=== PATIENT | male | born 1970 | race Two or more races ===

== ENCOUNTER 2021-07-21 09:03 | Emergency (ER) | payer SELFPAY ==
[~2021-07-21] VITALS: Ht 170.2 cm; Wt 75.0 kg
[2021-07-21] MEDS ORDERED: ONDANSETRON PF 4 MG/2 ML VIAL. IVP ONE (09:30)
[2021-07-21] MEDS ORDERED: LIDO:MAALOX 1:1 20 ML SINGLE DOSE. PO ONE (09:30)
[2021-07-21] MEDS ORDERED: IV NORMAL SALINE 1,000ML 1,000 ML IV ONE (09:30)
[2021-07-21] MEDS ORDERED: IOHEXOL 300 MG/ML 75 ML VIAL. IV ONE (09:45)
--- NOTE | 2021-07-21 09:59 | PHYS DOC ---
Past History Additional Past Medical Histor: told yesterday he has inflammation of intestines (ELISABETH TORRES APRN) Past Surgical History: Other Additional Past Surgical Histo: back surgery for herinated disc (ELISABETH TORRES APRN) Alcohol Use: None Additional Alcohol Information: "quit 2 years ago" (ELISABETH TORRES APRN) Adult General Chief Complaint Chief Complaint: ABDOMINAL PAIN HPI HPI Patient is a 51-year-old male presents to the emergency department chief complaint of upper quadrant abdominal pain for the past several months. Patient reports 3 days ago he had a sudden increase of pain without radiation, seek medical care at a clinic located on [facility] in [facility]. Patient does not recall the name of the physician he seen. Patient reports the doctor he is seeing thought it might be an inflammation of his bowels started him on a medication, patient does not know the name of the medication he was given however took 1 dose this morning without relief of pain. Patient rates his current pain at a 10 out of 10. Patient reports his pain over the past several months has been an intermittent 1-2 out of 10. Patient reports intermittent nausea, intermittent loose stools, denies seeing blood in his stool. Denies chest pain or shortness of breath. Denies recent fever or chills. Denies allergies to medications, denies taking other prescription medications or trying [id number] pain relief medications for his abdominal discomfort. Patient reports a surgical history of herniated disc repair in his low back 6 years ago. Denies cigarette smoking, denies illicit drug use, reports he was a heavy drinker for many years however has not drank alcohol in 2 years. Patient denies other physical complaints or physical concerns. (ELISABETH TORRES APRN) Review of Systems Review of Systems 14 body systems of review of systems have been reviewed. See HPI for pertinent positives and negative responses, otherwise all other systems are negative, no npertinent or noncontributory. Constitutional: Negative except as outlined in HPI above. Skin: Negative except as outlined in HPI above. Eyes: Negative except as outlined in HPI above. HENT: Negative except as outlined in HPI above. Respiratory: Negative except as outlined in HPI above. Cardiovascular: Negative except as outlined in HPI above. GI: Negative except as outlined in HPI above. : Negative except as outlined in HPI above. Musculoskeletal: Negative except as outlined in HPI above. Integument: Negative except as outlined in HPI above. Neurologic: Negative except as outlined in HPI above. Endocrine: Negative except as outlined in HPI above. Lymphatic: Negative except as outlined in HPI above. Psychiatric: Negative except as outlined in HPI above. (ELISABETH TORRES APRN) Current Medications Current Medications Current Medications Medications (Trade) Dose Ordered Sig/Luis M Start Time Stop Time Status Last Admin Dose Admin Iohexol (Omnipaque 300 Mg/ml) 75 ml 1X ONCE 07/21/21 09:45 07/21/21 09:46 Multi-Ingredient Mouthwash/Gargle (Gi Cocktail) 20 ml 1X ONCE 07/21/21 09:30 07/21/21 09:37 DC Ondansetron HCl (Zofran) 4 mg 1X ONCE 07/21/21 09:30 07/21/21 09:37 DC Sodium Chloride 1,000 ml @ 1,000 mls/hr 1X ONCE 07/21/21 09:30 07/21/21 10:29 (ELISABETH TORRES APRN) Allergies Allergies Allergies Coded Allergies Type Severity Reaction Last Updated Verified No Known Drug Allergies 07/21/21 No (ELISABETH TORRES APRN) Physical Exam Physical Exam Constitutional: Well developed, well nourished, no acute distress, non-toxic appearance. 51-year-old male in no apparent distress. Patient's reported pain level of 10 out of 10 exceeds patient's physical appearance and physical examination. HENT: Normocephalic, atraumatic. Eyes: Conjunctiva normal, no discharge. Neck: Normal range of motion, no stridor. Cardiovascular: No cyanosis appreciated, distal cap refill less than 2 seconds. Lungs & Thorax: Patient is in no respiratory distress, no audible adventitious lung sounds appreciated. Abdomen: No masses appreciated, bowel sounds normal all 4 quadrants, pain to palpation left upper quadrant without guarding, negative Cruz sign, negative McBurney's point tenderness, negative rebound tenderness. Skin: Warm, dry, no erythema, no rash. Back: No tenderness, no deformities. Negative left-sided or right-sided CVA TTP. Extremities: No tenderness, no cyanosis, no clubbing, ROM intact, no edema. Neurologic: Alert and oriented X 3, normal motor function, normal sensory function, no focal deficits noted. Psychologic: Affect normal, judgement normal, mood normal. (MELISSAELISABETH Nolan APRN) Current Patient Data Vital Signs Vital Signs Date Time Temp Pulse Resp B/P (MAP) Pulse Ox O2 Delivery O2 Flow Rate FiO2 07/21/21 09:17 97.3 93 15 143/68 (93) 98 Room Air (ELISABETH TORRES APRN) EKG EKG [] (ELISABETH TORRES APRN) Radiology/Procedures Radiology/Procedures PROCEDURE: CT ABD PELV W/ IV CONTRST ONLY Exam: CT abdomen/pelvis with intravenous contrast Indication: Left upper quadrant pain Comparison: None Technique: Helical CT imaging performed of the abdomen and pelvis after the intravenous administration of contrast. Sagittal and coronal reformats were obtained. One or more of the following individualized dose reduction techniques were utilized for this examination: 1. Automated exposure control 2. Adjustment of the mA and/or kV according to patient size 3. Use of iterative reconstruction technique. Findings: Lower chest: Lung bases are clear. Heart is normal in size. Liver: Liver is normal in size and diffusely low in attenuation. Gallbladder/Biliary Tree: Normal. Pancreas: Normal Spleen: Normal Adrenal Glands: Normal. Kidneys/Ureters/Bladder: Kidneys are normal in size and enhance symmetrically. No hydronephrosis. The ureters are normal. There is circumferential bladder wall thickening, which may be partially due to underdistention. Reproductive Organs: Prostate gland is normal. Stomach, small bowel, and colon: The stomach is normal. Loops of bowel in the le ft upper quadrant are mildly dilated measuring up to 3.6 cm. there is gradual transition to decompressed small bowel in the left mid abdomen without discrete transition point. There is some areas of possible wall thickening in the dilated small bowel. No pneumatosis. The rest the small bowel is normal in caliber. There is fecal material seen in distal small bowel. Appendix is normal. The colon is normal in caliber without wall thickening. Vasculature: Abdominal aorta is normal in caliber. Minimal scattered aortoiliac calcified atherosclerosis. Lymph Nodes: There is no lymphadenopathy. Peritoneum and retroperitoneum: No free fluid or free air. Bones: No acute osseous abnormality. Mild degenerative disc disease at L5-S1. IMPRESSION: 1. Dilated loops of small bowel in the left hemiabdomen without discrete transition point. Findings could reflect low-grade or partial small bowel obstruction, or ileus. 2. Hepatic steatosis. Electronically signed by: Niecy Herzog MD (07/21/2021 10:15 AM) [id number] (ELISABETH TORRES APRN) Heart Score C/O Chest Pain: No Risk Factors: Risk Factors: DM, Current or recent (<one month) smoker, HTN, HLP, family history of CAD, obesity. Risk Scores: Risk Factors: DM, Current or recent (<one month) smoker, HTN, HLP, family history of CAD, obesity. (ELISABETH TORRES APRN) Course & Med Decision Making Course & Med Decision Making Pertinent Labs and Imaging studies reviewed. (See chart for details) 51-year-old male, vital signs reviewed, presents emergency department concerning severe left upper quadrant pain for the past 3 days. Physical examination consistent with dyspepsia, there is a moderate suspicion of pancreatitis versus gastroenteritis, patient's heart rate is 120, does have a history of alcoholism, will order CBC, CMP, lipase, CT abdomen pelvis with IV contrast. Will give 1 L normal saline, 4 mg Zofran IV, GI cocktail. CT abdomen pelvis with IV contrast concerning for small bowel obstruction with ileus, patient's white blood cell count 19,800, patient started on intravenous Zosyn per pharmacy dosing, discussed with patient recommendation for admission to hospital, patient is amenable to this planning. Called and discussed patient case and ED work-up with inpatient management physician Dr. Butler who gave concerns patient may need surgical intervention, recommended transfer to [facility] Discussed transfer and admis rachele to [facility] patient is amenable to this planning. Called and discussed patient case and ED work-up with inpatient management physician Dr. Constantino at [facility] who recommended reviewed case with [facility] surgeon general surgery Dr. Patel, Dr. Constantino stated he would accept patient in transfer pending Dr. Patel's decision. Called and discussed patient case and ED work-up with [facility] surgeon Dr. Patel who agrees patient's case warrants admission to [facility] for surgical observation, recommended admitting to Dr. Constantino, Dr. Arana will consult. Transfer EMTALA forms were reviewed and signed, patient awaits EMS transport to [facility] Patient remains hemodynamically stable at this time. (ELISABETH TORRES APRN) Course & Med Decision Making I was the Attending physician on the above date of service of this patient. This patient was evaluated, examined, treated, and dispositioned from the emergency department by the mid-level practitioner. A I reviewed course of care with MANAGER PIPELINE and agreed to need for hospital transfer for general surgery consultation and continued serial abdominal exams of patient with partial obstruction Electronically signed, Alex Roberts DO (ALEX ROBERTS DO) Tabitha Disclaimer Dragon Disclaimer This electronic medical record was generated, in whole or in part, using a voice recognition dictation system. (ELISABETH TORRES APRN) Departure Departure: Impression: Primary Impression: Small bowel obstruction Additional Impression: Abdominal pain Disposition: 02 [facility]ORT TERM [facility] (Patient transferred to [facility] Dr. Constantino excepting physician, Dr. Patel consulting surgeon.) Condition: STABLE Referrals: PCP,NO (PCP) Problem Qualifiers Additional Impression: Abdominal pain Abdominal location: left upper quadrant Qualified Codes: R10.12 - Left upper quadrant pain ELISABETH TORRES APRN Jul 21, 2021 09:59 ALEX ROBERTS DO Jul 22, 2021 07:03
[2021-07-21 10:10] LABS: BASO % 0 % (0-3); EOS % 0 % (0-3); HEMATOCRIT 50.7 % (39.0-53.0); HEMOGLOBIN 16.9 g/dL (13.0-17.5); LYMPH # 2.6 x10^3/uL (1.0-4.8); LYMPH % 13 % (24-48); MEAN CORPUSCULAR HEMOGLOBIN 30 pg (25-35); MEAN CORPUSCULAR HGB CONC 33 g/dL (31-37); MEAN CORPUSCULAR VOLUME 89 fL (79-100); MONO # 1.2 x10^3/uL (0.0-1.1); MONO % 6 % (0-9); NEUT # 16.1 x10^3uL (1.8-7.7); NEUT % 81 % (31-73); PLATELET COUNT 308 x10^3/uL (140-400); RED BLOOD COUNT 5.68 x10^6/uL (4.30-5.70); RED CELL DISTRIBUTION WIDTH 13.4 % (11.5-14.5); WHITE BLOOD COUNT 19.8 x10^3/uL (4.0-11.0)
--- NOTE | 2021-07-21 10:17 | RAD ---
Exam: CT abdomen/pelvis with intravenous contrast Indication: Left upper quadrant pain Comparison: None Technique: Helical CT imaging performed of the abdomen and pelvis after the intravenous administratio n of contrast. Sagittal and coronal reformats were obtained. One or more of the following individualized dose reduction techniques were utilized for this examinat ion: 1. Automated exposure control 2. Adjustment of the mA and/or kV according to patient size 3. Use of iterative reconstruction technique. Findings: Lower chest: Lung bases are clear. Heart is normal in size. Liver: Liver is normal in size and diffusely low in attenuation. Gallbladder/Biliary Tree: Normal. Pancreas: Normal Spleen: Normal Adrenal Glands: Normal. Kidneys/Ureters/Bladder: Kidneys are normal in size and enhance symmetrically. No hydronephrosis. The ureters are normal. There is circumferential bladder wall thickening, which may be partially due to underdistention. Reproductive Organs: Prostate gland is normal. Stomach, small bowel, and colon: The stomach is normal. Loops of bowel in the left upper quadrant are mildly dilated measuring up to 3.6 cm. there is gradual transition to decompressed small bowel in th e left mid abdomen without discrete transition point. There is some areas of possible wall thickening in the dilated small bowel. No pneumatosis. The rest the small bowel is normal in caliber. There is fecal material seen in distal small bowel. Appendix is normal. The colon is normal in caliber without wall thickening. Vasculature: Abdominal aorta is normal in caliber. Minimal scattered aortoiliac calcified atheroscler osis. Lymph Nodes: There is no lymphadenopathy. Peritoneum and retroperitoneum: No free fluid or free air. Bones: No acute osseous abnormality. Mild degenerative disc disease at L5-S1. IMPRESSION: 1. Dilated loops of small bowel in the left hemiabdomen without discrete transition point. Findings could reflect low-grade or partial small bowel obstruction, or ileus. 2. Hepatic steatosis. Electronically signed by: Niecy Herzog MD (07/21/2021 10:15 AM) [id number]
[2021-07-21 10:22] LABS: BACTERIA,URINE 0 /HPF (0-FEW); BILIRUBIN,URINE SMALL (NEG); CLARITY,URINE CLEAR; COLOR,URINE STRAW; GLUCOSE,URINE NEG (NEG); HYALINE CASTS, URINE FEW /HPF; NITRITE,URINE NEG (NEG); SQUAMOUS EPITHELIAL CELL,UR FEW /LPF; UROBILINOGEN,URINE 0.2 mg/dL (0.2 mg/dL)
[2021-07-21 10:26] LABS: LIPASE 106 U/L (73-393)
[2021-07-21] MEDS ORDERED: PIP/TAZO PER PHARMACY MC PRN (10:45)
[2021-07-21] MEDS ORDERED: PIPERACILLIN/TAZOBACTAM 4.5 GM VIAL IV ONE (10:51)
[2021-07-21] MEDS ORDERED: IV NORMAL SALINE 50ML 50 ML ONE (10:51)
[2021-07-21 10:52] LABS: CALCIUM 9.2 mg/dL (8.5-10.1); CREATININE 0.8 mg/dL (0.7-1.3); GFR 102.3; POTASSIUM 3.9 mmol/L (3.5-5.1)
[2021-07-21] MEDS: PIPERACILLIN/TAZOBACTAM 4.5 GM in IV NORMAL SALINE 50ML 50 ML IV SCH (11:04)
[2021-07-21 11:06] LABS: ALBUMIN 4.4 g/dL (3.4-5.0); ALBUMIN/GLOBULIN RATIO 1.3 (1.0-1.7); TOTAL BILIRUBIN 1.1 mg/dL (0.2-1.0); TOTAL PROTEIN 7.9 g/dL (6.4-8.2)
[2021-07-21] MEDS ORDERED: MORPHINE SULFATE 4 MG/ML DISP.SYRIN. IV ONE (11:15)
[2021-07-21 14:40] LABS: % LYMPHS 13 % (24-48); % MONOS 5 % (0-10); % SEGS 82 % (35-66)
[2021-07-21 14:41] LABS: PLT ESTIMATE ADEQUATE (ADEQUATE)
[2021-07-22] MEDS ORDERED: IV NORMAL SALINE 50ML 50 ML ONE ×3 (00:31→11:51)
[2021-07-22] MEDS ORDERED: PIPERACILLIN/TAZOBACTAM 4.5 GM VIAL IV ONE ×3 (00:31→11:51)
[2021-07-22] MEDS: PIPERACILLIN/TAZOBACTAM 4.5 GM in IV NORMAL SALINE 50ML 50 ML IV SCH ×3 (00:37→12:03)
[2021-07-22 11:19] LABS: CALCIUM 9.2 mg/dL (8.5-10.1); CREATININE 0.9 mg/dL (0.7-1.3); GFR 89.3; POTASSIUM 3.9 mmol/L (3.5-5.1)
[2021-07-22 11:21] LABS: BASO % 0 % (0-3); EOS # 0.1 x10^3/uL (0.0-0.7); EOS % 1 % (0-3); HEMATOCRIT 47.5 % (39.0-53.0); HEMOGLOBIN 15.8 g/dL (13.0-17.5); LYMPH % 22 % (24-48); MEAN CORPUSCULAR HEMOGLOBIN 30 pg (25-35); MEAN CORPUSCULAR HGB CONC 33 g/dL (31-37); MEAN CORPUSCULAR VOLUME 89 fL (79-100); MONO # 0.5 x10^3/uL (0.0-1.1); MONO % 6 % (0-9); NEUT # 6.5 x10^3uL (1.8-7.7); NEUT % 72 % (31-73); PLATELET COUNT 258 x10^3/uL (140-400); RED BLOOD COUNT 5.33 x10^6/uL (4.30-5.70); RED CELL DISTRIBUTION WIDTH 13.6 % (11.5-14.5); WHITE BLOOD COUNT 9.2 x10^3/uL (4.0-11.0)
[2021-07-22 11:22] LABS: ALBUMIN 3.9 g/dL (3.4-5.0); ALBUMIN/GLOBULIN RATIO 1.2 (1.0-1.7); TOTAL BILIRUBIN 1.3 mg/dL (0.2-1.0); TOTAL PROTEIN 7.2 g/dL (6.4-8.2)
[2021-07-22 12:55] VITALS: BP 116/53
== END 2021-07-22 13:10 | disposition short-term general hospital (02) ==
LOC: ER 09:03
DX: K56.609 Unspecified intestinal obstruction, unspecified as to partial versus complete obstruction (principal); R10.12 Left upper quadrant pain; R19.7 Diarrhea, unspecified; Z20.822 Contact with and (suspected) exposure to COVID-19
CPT/HCPCS: 36415; 74177; 80053; 81001; 82553; 83690; 85007; 85025; 87426; 96361; 96365; 96366; 96375; 99285; J2270; J2405; J2543; J7030; Q9967; U0003